=== PATIENT | male | born 1985 | race Caucasian/White ===

== ENCOUNTER 2018-10-24 02:41 | Emergency (ER) | payer SELFPAY ==
[2018-10-24] MEDS ORDERED: PROMETHAZINE HCL 25 MG TABLET PO ONE (03:45)
[2018-10-24] MEDS ORDERED: KETOROLAC TROMETHAMINE 60 MG/2 ML SDV IM ONE (03:45)
--- NOTE | 2018-10-24 03:49 | ER Document Report ---
ED GI/ - General Chief Complaint: Abdominal Pain Stated Complaint: ABDOMINAL PAIN Time Seen by Provider: 10/24/18 03:36 Notes: Patient is a 32-year-old male that comes emergency department by EMS from prison for chief complaint of mid abdominal pain. He states that he also had a hard bowel movement earlier with a small amount of blood in it. He reports some nausea but denies vomiting. He denies fever or chills. He denies back pain. He has used oral opiates but he denies ever injecting any IV drugs in the past. He denies numbness of the lower extremities, incontinence, inability to urinate. He denies history of the same. Only past medical history reported to me as orthopedic surgery on his left arm. He denies any daily medications. TRAVEL OUTSIDE OF THE [place] IN LAST 30 DAYS: No - Related Data Allergies/Adverse Reactions: No Known Allergies Allergy (Unverified 02/19/16 15:21) Past Medical History - General Information source: Patient - Social History Smoking Status: Never Smoker Drug Abuse: Prescription drugs Family History: Reviewed & Not Pertinent Past Surgical History: Reports: Hx Orthopedic Surgery - Left proximal forearm - Immunizations Immunizations up to date: Yes Hx Diphtheria, Pertussis, Tetanus Vaccination: Yes Review of Systems - Review of Systems Constitutional: No symptoms reported EENT: No symptoms reported Cardiovascular: No symptoms reported Respiratory: No symptoms reported Gastrointestinal: See HPI Genitourinary: No symptoms reported Male Genitourinary: No symptoms reported Musculoskeletal: No symptoms reported Skin: No symptoms reported Hematologic/Lymphatic: No symptoms reported Neurological/Psychological: No symptoms reported Physical Exam - Vital signs Vitals: Temp Pulse Resp BP Pulse Ox 97.3 F 89 18 127/66 H 97 10/24/18 04:00 10/24/18 04:00 10/24/18 04:00 10/24/18 04:00 10/24/18 04:00 - Notes Notes: GENERAL: Curled up into a ball, occasionally groaning, however appears alert. He does respond and follow directions without difficulty. HEAD: Normocephalic, atraumatic. EYES: Pupils equal, round, and reactive to light. Extraocular movements intact. ENT: Oral mucosa moist, tongue midline. Oropharynx unremarkable. Airway patent. Nares patent, no nasal septal hematoma, TM's intact. NECK: Full range of motion. Supple. Trachea midline. LUNGS: Clear to auscultation bilaterally, no wheezes, rales, or rhonchi. No respiratory distress. HEART: Regular rate and rhythm. No murmur ABDOMEN: Tenderness regardless of the area palpation. Questionable mild distention. Abdomen is still soft, there is no guarding, no hernia noted. Bowel sounds present. GENITOURINARY: No concerning swelling, tenderness, or other abdomen noted. Genital piercing in place. EXTREMITIES: Large old scar at the proximal left forearm. Moves all 4 extremities spontaneously. No edema, normal radial and dorsalis pedis pulses bilaterally. No cyanosis. BACK: no cervical, thoracic, lumbar midline tenderness. No saddle anesthesia, normal distal neurovascular exam. NEUROLOGICAL: Alert and oriented x3. Normal speech. [cranial nerves II through X II grossly intact]. PSYCH: Cryptic answers SKIN: Warm, dry, normal turgor. No rashes or lesions noted. Course - Re-evaluation Re-evalutation: Patient is tender regardless of the location palpate on the abdomen. However the abdomen is not rigid, there is no particular area of guarding. Patient curled up holding his abdomen. After Toradol and Phenergan on reevaluation he is resting quietly until I entered the room and then he begins moaning. Patient's vital signs are unremarkable. On rectal exam there is no gross bleeding, however there is some hardened stool at the back of the rectal vault. CBC shows mild leukocytosis with elevation of neutrophils, no bandemia. Chemistry unremarkable. Lipase unremarkable. Urinalysis shows some mild dehydration, nonspecific. Acute abdominal series shows retained stool, small metallic foreign bodies which could be coil versus springs. Discussed with patient, he denies swallowing any foreign objects. I explained that we are just trying to help and he insists that he "cannot remember doing anything like that". Patient also states that he used to take oral opiates but states he has not done so recently. This is most likely the cause of patient's large amount of stool. Discussed with Dr. Dunham. CAT scan performed without contrast, shows no concerning foreign bodies. No acute findings except large amount of retained stool. I did call and speak with Dr. Brian, surgeon rural electrification engineer, no additional recommendations at this time based on patient studies and evaluation, re commendation is stool softeners and he will likely passed these objects. I discussed this with patient. Because of the very large amount of stool I recommended an enema, patient is in agreement with this plan. Patient is much more calm on reevaluation. 10/24/18 08:08 Patient almost completed enema, has had some results. Will complete and then discharge. Discussed plan, results, return precautions and followup. Patient states understanding and agreement. - Vital Signs Vital signs: Temp Pulse Resp BP Pulse Ox 97.3 F 89 18 127/66 H 97 10/24/18 04:00 10/24/18 04:00 10/24/18 04:00 10/24/18 04:00 10/24/18 04:00 - Laboratory Result Diagrams: 10/24/18 04:15 10/24/18 04:15 Laboratory results interpreted by me: 10/24/18 10/24/18 10/24/18 04:15 04:15 06:39 WBC 10.8 H RBC 5.75 H Hgb 11.3 L Hct 35.5 L MCV 62 L MCH 19.7 L RDW 15.8 H Seg Neutrophils % 83.3 H Lymphocytes % 10.3 L Absolute Neutrophils 9.0 H Glucose 111 H Urine Protein 30 H Urine Urobilinogen 2.0 H Urine Ascorbic Acid 40 H Discharge - Discharge Clinical Impression: Abdominal pain Qualifiers: Abdominal location: generalized Qualified Code(s): R10.84 - Generalized abdominal pain Condition: Stable Disposition: HOME, SELF-CARE Additional Instructions: Your workup shows a large amount of retained stool. This is most likely the cause of your pain. I recommend the Colace stool softener, 1-2 times a day, for the next several days. After your bloating and pain have resolved and you have had several good bowel movements stop the stool softener and increase fiber in your diet. Take Tylenol or ibuprofen for pain. Take Zofran if needed for nausea. You have 2 small metallic appearing foreign objects in your bowel that looks similar to coils/springs. These should pass in your bowel movements. You also have a pulmonary nodule (lung nodule) in the left lower lung. This needs to be monitored for growth to intervene before it could possibly become cancer in the future. Recommended monitoring period is 3-[address] months for a repeat CT of the chest. Stop smoking. Return if you worsen including severe worsening abdominal pain, fever, vomiting, or any other concerning or worsening symptoms. Prescriptions: Docusate Sodium [Colace 100 mg Capsule] 100 mg PO ASDIR PRN #30 capsule PRN Reason: Ondansetron [Zofran Odt 4 mg Tablet] 1 - 2 tab PO Q4H PRN #15 tab.rapdis PRN Reason: For Nausea/Vomiting
[2018-10-24 04:21] LABS: ABSOLUTE BASOPHILS # (AUTO) 0.1 10^3/uL (0.0-0.2); ABSOLUTE LYMPHOCYTES (AUTO) 1.1 10^3/uL (0.5-4.7); ABSOLUTE MONOCYTES (AUTO) 0.6 10^3/uL (0.1-1.4); BASOPHILS % (AUTO) 0.6 % (0-2); EOSINOPHILS % (AUTO) 0.1 % (0-6); HEMATOCRIT 35.5 % (37.9-51.0); HEMOGLOBIN 11.3 g/dL (13.5-17.0); LYMPHOCYTES % (AUTO) 10.3 % (13-45); MEAN CORPUSCULAR HEMOGLOBIN 19.7 pg (27.0-33.4); MONOCYTES % (AUTO) 5.7 % (3-13); PLATELET COUNT 279 10^3/uL (150-450); RED BLOOD COUNT 5.75 10^6/uL (4.35-5.55); RED CELL DISTRIBUTION WIDTH 15.8 % (11.5-14.0); SEGMENTED NEUTROPHILS % (AUTO) 83.3 % (42-78); TOTAL CELLS COUNTED % (AUTO) 100 %; WHITE BLOOD COUNT 10.8 10^3/uL (4.0-10.5)
[2018-10-24 04:26] LABS: MEAN CORPUSCULAR VOLUME 62 fl (80-97)
--- NOTE | 2018-10-24 04:26 | RADIOLOGY REPORT (SQ) ---
EXAM DESCRIPTION: XR ABDOMEN SUPINE AND ERECT WITH CHEST (ABD ACUTE SERIES) COMPLETED DATE/TME: 10/24/2018 03:44 CLINICAL HISTORY: 32 years Male, mid abdominal pain Comparison: None. NUMBER OF VIEWS/TECHNIQUE: 3 LIMITATIONS: None. FINDINGS: Intestinal gas pattern is within normal limits. Paucity of bowel gas. Colonic stool retention. Suture coil opacity at the L3 vertebral level along the left paramedial mid abdomen and similar coil-suture opacity at the cecum. No suspicious calcification. Grossly intact skeletal structures. No acute cardiopulmonary findings. IMPRESSION: No acute findings. Foreign body/coil.
[2018-10-24 04:32] LABS: ALANINE AMINOTRANSFERASE 30 U/L (21-72); ALBUMIN 4.3 g/dL (3.5-5.0); ALKALINE PHOSPHATASE 57 U/L (38-126); ANION GAP 10 (5-19); ASPARTATE AMINO TRANSFERASE 26 U/L (17-59); BILIRUBIN,DIRECT 0.2 mg/dL (0.0-0.4); BILIRUBIN,TOTAL 0.4 mg/dL (0.2-1.3); BLOOD UREA NITROGEN 20 mg/dL (7-20); CALCIUM 9.8 mg/dL (8.4-10.2); CARBON DIOXIDE 25 mmol/L (22-30); CHLORIDE 105 mmol/L (98-107); GLUCOSE 111 mg/dL (75-110); LIPASE 43.2 U/L (23-300); POTASSIUM 4.4 mmol/L (3.6-5.0); SODIUM 139.6 mmol/L (137-145); TOTAL PROTEIN 7.5 g/dL (6.3-8.2)
[2018-10-24 04:44] LABS: ANISOCYTOSIS 1+; BURR CELLS SLIGHT; HYPOCHROMASIA 2+; OVALOCYTES 1+; POLYCHROMASIA SLIGHT; TARGET CELLS 1+
[2018-10-24 04:47] LABS: PLATELET COMMENT ADEQUATE
--- NOTE | 2018-10-24 05:38 | RADIOLOGY REPORT (SQ) ---
EXAM DESCRIPTION: CT ABDOMEN PELVIS WITHOUT IV CONTRAST COMPLETED DATE/TME: 10/24/2018 04:57 CLINICAL HISTORY: 32 years Male, abd pain, eval foreign bodies Comparison: CR, same day. Technique: No contrast. Coronal and sagittal reformat. This exam was performed according to our departmental dose-optimization program, which includes automated exposure control, adjustment of the mA and/or kV according to patient size and/or use of iterative reconstruction technique.[facility]: Dose Right [facility]: CareDose [facility]: Dose Right [facility]: Teradose 4D [facility]: [employer] LIMITATIONS: None Findings: A 0.8 x 0.5 cm subsolid pulmonary nodule in the left lower lobe, image 10 of series 3. Recommend complete CT chest surveillance at 3-6 months. Stool retention. No significant foreign body, as queried. No ascites. No pneumoperitoneum. No bowel obstruction. No hydronephrosis or hydroureter. No renal/ureteral stone. No gross evidence of gallbladder inflammation or hepatobiliary obstruction. Normal appendix. No evidence of abdominal aortic aneurysm. Unenhanced lower thorax, abdominopelvic structures, and musculoskeleton appear otherwise grossly unremarkable. Impression: 1. A 0.8 x 0.5 cm subsolid pulmonary nodule in the left lower lobe, image 10 of series 3. Recommend complete CT chest surveillance at 3-6 months. 2. No acute findings.
[2018-10-24] MEDS ORDERED: MINERAL OIL 30 ML UDCUP PR ONE (05:55)
[2018-10-24] MEDS ORDERED: ONDANSETRON 4 MG TAB.RAPDIS PO ONE (06:43)
[2018-10-24 07:08] LABS: APPEARANCE,URINE CLEAR; BILIRUBIN,URINE NEGATIVE (NEGATIVE); COLOR,URINE YELLOW; GLUCOSE, URINE NEGATIVE (NEGATIVE); KETONES,URINE NEGATIVE (NEGATIVE); LEUKOCYTE ESTERASE,URINE NEGATIVE (NEGATIVE); NITRITE,URINE NEGATIVE (NEGATIVE); PROTEIN,URINE 30 mg/dL (NEGATIVE); URINE SPECIFIC GRAVITY 1.027
[2018-10-24 08:52] VITALS: BP 127/61
[2018-10-24 12:04] LABS: PATH REVIEW PATHOLOGIST REVIEWED
== END 2018-10-24 08:52 | disposition home or self-care (01) ==
LOC: ER 02:41
DX: R11.0 Nausea (principal); R10.84 Generalized abdominal pain
CPT/HCPCS: 99284; 96372; 36415; 83690; 85025; 80053; 81001; 74022; 74176; J1885; S0119; J3490

== ENCOUNTER 2019-03-24 02:24 | Emergency (ER) | payer SELFPAY ==
[2019-03-24] MEDS ORDERED: ACTIVATED CHARCOAL 25 GM BOTTLE PO ONE (02:49)
[2019-03-24] MEDS ORDERED: NORMAL SALINE 1000 ML 1,000 ML IV ONE (02:49)
[2019-03-24] MEDS ORDERED: ONDANSETRON HCL INJ/PF 4 MG/2 ML SDV IV ONE (02:49)
[2019-03-24 03:08] LABS: ABSOLUTE BASOPHILS # (AUTO) 0.1 10^3/uL (0.0-0.2); ABSOLUTE LYMPHOCYTES (AUTO) 0.8 10^3/uL (0.5-4.7); ABSOLUTE MONOCYTES (AUTO) 0.3 10^3/uL (0.1-1.4); ABSOLUTE NEUT (AUTO) 8.7 10^3/uL (1.7-8.2); BASOPHILS % (AUTO) 0.7 % (0-2); EOSINOPHILS % (AUTO) 0.2 % (0-6); HEMATOCRIT 32.9 % (37.9-51.0); HEMOGLOBIN 10.4 g/dL (13.5-17.0); LYMPHOCYTES % (AUTO) 8.1 % (13-45); MEAN CORPUSCULAR HEMOGLOBIN 19.3 pg (27.0-33.4); MEAN CORPUSCULAR HGB CONC 31.7 g/dL (32.0-36.0); MONOCYTES % (AUTO) 3.3 % (3-13); PLATELET COUNT 226 10^3/uL (150-450); RED BLOOD COUNT 5.41 10^6/uL (4.35-5.55); RED CELL DISTRIBUTION WIDTH 16.6 % (11.5-14.0); SEGMENTED NEUTROPHILS % (AUTO) 87.7 % (42-78); TOTAL CELLS COUNTED % (AUTO) 100 %; WHITE BLOOD COUNT 9.9 10^3/uL (4.0-10.5)
[2019-03-24 03:27] LABS: ANISOCYTOSIS 1+; HYPOCHROMASIA 1+; OVALOCYTES SLIGHT; PLATELET COMMENT ADEQUATE; POIKILOCYTOSIS SLIGHT; POLYCHROMASIA SLIGHT; SCHISTOCYTES SLIGHT
[2019-03-24 03:28] LABS: MEAN CORPUSCULAR VOLUME 61 fl (80-97)
--- NOTE | 2019-03-24 04:13 | RADIOLOGY REPORT (SQ) ---
CLINICAL HISTORY: abdominal pain, swallowed bag of heroin COMPARISON: None. TECHNIQUE: CT ABDOMEN PELVIS WITH IV CONTRAST on 03/24/2019 2:57 AM CDT This exam was performed according to our departmental dose-optimization program, which includes automated exposure control, adjustment of the mA and/or kV according to patient size and/or use of iterative reconstruction technique. FINDINGS: Lower lungs are clear. Abdomen: The liver is normal in appearance. There is no biliary dilatation. Gallbladder is normal in appearance. Stomach is poorly distended. There are no radiopaque foreign bodies. The pancreas and spleen are normal in appearance. The adrenal glands and kidneys are unremarkable. Abdominal aorta is normal in course and caliber without aneurysm. There is no free air. There is no retroperitoneal adenopathy. Pelvis: There is no bowel obstruction. Urinary bladder is unremarkable. There is no free fluid. Appendix is normal. Skeleton: There are no acute osseous findings. No suspicious bony lesions. IMPRESSION: No acute inflammatory process. No radiopaque foreign body.
[2019-03-24 04:34] LABS: ALBUMIN 4.1 g/dL (3.5-5.0); ALKALINE PHOSPHATASE 52 U/L (38-126); ANION GAP 10 (5-19); ASPARTATE AMINO TRANSFERASE 32 U/L (17-59); BILIRUBIN,DIRECT 0.3 mg/dL (0.0-0.4); BILIRUBIN,TOTAL 0.6 mg/dL (0.2-1.3); BLOOD UREA NITROGEN 21 mg/dL (7-20); CALCIUM 9.2 mg/dL (8.4-10.2); CARBON DIOXIDE 26 mmol/L (22-30); CHLORIDE 102 mmol/L (98-107); GLUCOSE 91 mg/dL (75-110); POTASSIUM 4.4 mmol/L (3.6-5.0); TOTAL PROTEIN 6.8 g/dL (6.3-8.2)
[2019-03-24 04:38] LABS: ALCOHOL < 10 mg/dL (NONE DETECTED)
[2019-03-24 05:09] LABS: APPEARANCE,URINE CLEAR; BILIRUBIN,URINE NEGATIVE (NEGATIVE); COLOR,URINE YELLOW; GLUCOSE, URINE NEGATIVE (NEGATIVE); KETONES,URINE 20 mg/dL (NEGATIVE); LEUKOCYTE ESTERASE,URINE NEGATIVE (NEGATIVE); NITRITE,URINE NEGATIVE (NEGATIVE); PROTEIN,URINE NEGATIVE (NEGATIVE); URINE SPECIFIC GRAVITY 1.038; UROBILINOGEN,URINE NEGATIVE mg/dL (<2.0)
[2019-03-24 05:23] LABS: URINE BARBITURATES SCREEN NEGATIVE; URINE BENZODIAZEPINES SCREEN UNCONFIRMED POSITIVE; URINE COCAINE SCREEN NEGATIVE; URINE MARIJUANA (THC) SCREEN NEGATIVE; URINE METHADONE SCREEN NEGATIVE; URINE PHENCYCLIDINE SCREEN NEGATIVE
--- NOTE | 2019-03-24 05:34 | ER Document Report ---
ED General - General Chief Complaint: Possible Overdose Stated Complaint: POSSIBLE OVERDOSE Time Seen by Provider: 03/24/19 02:46 Mode of Arrival: Medic Information source: Patient TRAVEL OUTSIDE OF THE [place] IN LAST 30 DAYS: No - HPI Notes: Patient is a 33-year-old male presents the emergency department with report that he was arrested at about 1930 last evening and when he was in the custodial he reported that he had eaten a small bag of 3 g of heroin with a metal twist tie on the top just before being arrested at 1930 last evening. There is no report of somnolence with the patient. The patient reports crampy abdominal pain with nausea and seems somewhat anxious. He did admit to having methamphetamine earlier as well as Xanax. Patient is currently incarcerated in handcuffs with a police service technician at the bedside. Patient denies any cough, chest pain, difficulty breathing, vomiting. - Related Data Allergies/Adverse Reactions: No Known Allergies Allergy (Unverified 02/19/16 15:21) Past Medical History - General Information source: Patient - Social History Smoking Status: Unknown if Ever Smoked Frequency of alcohol use: None Drug Abuse: Heroin, Methamphetamine, Prescription drugs Lives with: Friend Family History: Reviewed & Not Pertinent Patient has suicidal ideation: No Patient has homicidal ideation: No Renal/ Medical History: Denies: Hx Peritoneal Dialysis Psychiatric Medical History: Reports: Hx Depression Past Surgical History: Reports: Hx Orthopedic Surgery - Left proximal forearm - Immunizations Immunizations up to date: Yes Hx Diphtheria, Pertussis, Tetanus Vaccination: Yes Review of Systems - Review of Systems -: Yes All other systems reviewed and negative Physical Exam - Vital signs Vitals: Resp Pulse Ox 16 97 03/24/19 02:32 03/24/19 02:32 - Notes Notes: PHYSICAL EXAMINATION: GENERAL: Somewhat anxious, diaphoretic. HEAD: Atraumatic, normocephalic. EYES: Pupils equal round and reactive to light, extraocular movements intact, sclera anicteric, conjunctiva are normal. Pupils are 4 mm and appropriately reactive. ENT: Nares patent, oropharynx clear without exudates. Moist mucous membranes. NECK: Normal range of motion, supple without lymphadenopathy LUNGS: Breath sounds clear to auscultation bilaterally and equal. No wheezes rales or rhonchi. HEART: Regular rate and rhythm without murmurs ABDOMEN: Soft, nondistended abdomen. No guarding, no rebound. No masses appreciated. Patient is diffusely tender mainly through the periumbilical region. Patient can be distracted away from his pain with conversation. Musculoskeletal: Normal range of motion, no pitting or edema. No cyanosis. NEUROLOGICAL: Cranial nerves grossly intact. Normal speech, normal gait. Normal sensory, motor exams . No somnolence. PSYCH: Normal mood, normal affect. SKIN: Warm, Dry, normal turgor, no rashes or lesions noted. Course - Re-evaluation Re-evalutation: 03/24/19 05:38 CT scan was negative for foreign body or the described wire twist I that the patient states was on the bag. Patient was observed further with stable vital signs and he later went to sleep but was easily awakened. There is no clinical suggestion for hypersomnolence or drug overdose. There was more of a question of anxiety and possible narcotic withdrawal given the patient's symptoms. The patient did not seem surprised that I informed him that the CT scan was negative for any foreign body or other abnormality. Patient was rehydrated with 1 L normal saline for mild ketosis. Patient is medically cleared for custodial. I do not suspect the aforementioned ingestion of a small bag with a wire twist tie that the patient describes. 03/24/19 05:43 - Vital Signs Vital signs: Temp Pulse Resp BP Pulse Ox 26 H 109/73 100 03/24/19 05:31 03/24/19 05:31 03/24/19 05:31 - Laboratory Result Diagrams: 03/24/19 02:48 03/24/19 03:35 Laboratory results interpreted by me: 03/24/19 03/24/19 03/24/19 02:48 03:35 04:51 Hgb 10.4 L Hct 32.9 L MCV 61 L MCH 19.3 L MCHC 31.7 L RDW 16.6 H Lymph % (Auto) 8.1 L Absolute Neuts (auto) 8.7 H Seg Neutrophils % 87.7 H BUN 21 H Urine Ketones 20 H Discharge - Discharge Clinical Impression: Narcotic withdrawal, Polysubstance abuse, Dehydration Ingestion of foreign substance Qualifiers: Encounter type: initial encounter Qualified Code(s): T18.9XXA - Foreign body of alimentary tract, part unspecified, initial encounter Condition: Stable Disposition: HOME, SELF-CARE Instructions: Dehydration ([facility]), Narcotic Abuse ([facility]) Additional Instructions: Drink plenty of fluids. PATIENT IS MEDICALLY CLEARED FOR USP.
[2019-03-24 05:40] VITALS: BP 109/73
--- NOTE | 2019-03-24 06:59 | EKG REPORT ---
SEVERITY:- ABNORMAL ECG - SINUS RHYTHM INCOMPLETE RIGHT BUNDLE BRANCH BLOCK : Confirmed by: Barak Swain MD 24-Mar-2019 06:58:29
[2019-03-24 11:46] LABS: PATH REVIEW PATHOLOGIST REVIEWED
== END 2019-03-24 05:52 | disposition home or self-care (01) ==
LOC: ER 02:24
DX: T18.9XXA Foreign body of alimentary tract, part unspecified, initial encounter (principal); E86.0 Dehydration; F11.23 Opioid dependence with withdrawal; R10.84 Generalized abdominal pain; R11.0 Nausea; X58.XXXA Exposure to other specified factors, initial encounter
CPT/HCPCS: 93005; 99284; 36415; 80307 ×2; 83735; 85025; 80053; 81001; 74177; 93010; J2405; J7030; J3490